=== PATIENT | female | born 1985 | race Hispanic/Latino ===

== ENCOUNTER 2023-02-18 13:17 | Emergency (ER) | payer OTHER ==
[2023-02-18 14:16] LABS: Absolute Lymphocytes (CBC) 1.5 K/uL (0.7-4.9); Hematocrit 37.4 % (36.0-45.0); Lymphocytes % 30.8 % (15.3-44.8); MCV 83.8 fL (80-100); MPV 7.3 fL (7.6-11.3); Platelets 299 thou/uL (152-406); RBC Red Blood Cell Count 4.46 M/uL (3.86-4.86)
[2023-02-18 14:42] LABS: Albumin 3.5 g/dL (3.4-5.0); Bilirubin Direct 0.1 mg/dL (0-0.2); Bilirubin Indirect, Calculated 0.5 mg/dL (0.2-0.8); Bilirubin Total 0.6 mg/dL (0.2-1.0); Magnesium 2.2 mg/dL (1.6-2.4); Potassium 3.8 mEq/L (3.5-5.1); Protein, Total 7.4 g/dL (6.4-8.2); Thyroid Stimulating Hormone 2.22 uIU/mL (0.358-3.740)
--- NOTE | 2023-02-18 14:50 | RAD REPORT ---
EXAM DESCRIPTION: RAD - Abdomen 1 View (KUB) - 02/18/2023 2:42 pm CLINICAL HISTORY: CONSTIPATION Pain COMPARISON: No comparisons FINDINGS: The bowel gas pattern is non-obstructive. No evidence of free air or pneumatosis. No suspi cious calcifications. No significant bony findings. Moderate stool is present in the colon. IMPRESSION: Moderate constipation.
--- NOTE | 2023-02-18 15:03 | ER ---
Nurse's Notes [facility] Name: Linsey Goldman Age: 37 yrs Sex: Female : 1985 Arrival Date: 02/18/2023 Time: 13:17 Bed 19 [facility] MD: Diagnosis: Constipation, unspecified Presentation: 02/18 13:29 Chief complaint: Patient states: Not eating well, not having good BM's, fatigue, SOB ll1 with exertion, some nausea since beginning of February. No fever. Lots of life's stressors recently. Coronavirus screen: Vaccine status: Patient reports receiving the 2nd dose of the covid vaccine. Client denies travel out of the [place] in the last 14 days. At this time, the client does not indicate any symptoms associated with coronavirus-19. Ebola Screen: Patient denies travel to an Ebola-affected area in the 21 days before illness onset. No acute neurological deficit is noted. Initial Sepsis Screen: Does the patient meet any 2 criteria? No. Patient's initial sepsis screen is negative. Does the patient have a suspected source of infection? No. Patient's initial sepsis screen is negative. Risk Assessment: Do you want to hurt yourself or someone else? Patient reports no desire to harm self or others. Onset of symptoms was February 03, 2023. 13:29 Method Of Arrival: Ambulatory ll1 13:29 Acuity: VIDA 3 ll1 PALLIATIVE MEDICINE PHYSICIAN: 15:11 LMP N/A - control method, Not ap3 Stroke Activation: Symptom onset > 6 hours Physician: Stroke Attending; Name: ; Notified At: ; Arrived At: Physician: Chief Stroke Resident; Name: ; Notified At: ; Arrived At: Physician: Stroke Resident; Name: ; Notified At: ; Arrived At: Physician: ED Attending; Name: ; Notified At: ; Arrived At: Physician: ED Resident; Name: ; Notified At: ; Arrived At: Historical: - Allergies: 13:33 No Known Allergies; ll1 - PMHx: 13:33 None; ll1 - PSHx: 13:33 section; ll1 - Immunization history:: Client reports receiving the 2nd dose of the Covid vaccine. - Social history:: Smoking status: Patient denies any tobacco usage or history of. Screenin:34 [facility] ED Fall Risk Assessment (Adult) History of falling in the last 3 months, ap3 including since admission No falls in past 3 months (0 pts). Abuse screen: Denies threats or abuse. Nutritional screening: No deficits noted. Tuberculosis screening: No symptoms or risk factors identified. Assessment: 14:33 General: Appears in no apparent distress. Behavior is cooperative, appropriate for age, ap3 anxious. Pain: Complains of pain in abdomen Quality of pain is described as discomfort. Neuro: Level of Consciousness is awake, alert, obeys commands, Oriented to person, place, time, situation. Cardiovascular: Patient's skin is warm and dry. Respiratory: Airway is patent Respiratory effort is even, unlabored, Respiratory pattern is regular, symmetrical. GI: Reports constipation. Vital Signs: 13:29 BP 133 / 76; Pulse 91; Resp 17; Temp 99.4; Pulse Ox 100% ; Weight 64.86 kg; Height 4 ll1 ft. 11 in. ; Pain 0/10; 13:29 Body Mass Index 28.88 (64.86 kg, 149.86 cm) ll1 13:29 Pain Scale: Adult ll1 ED Course: 13:21 Patient arrived in ED. mr 13:21 Deyanira Brian MD is Attending Physician. sp3 13:32 Triage completed. ll1 14:08 Santa Hernandez, PARRISH is Primary Nurse. ap3 14:08 Initial lab(s) drawn, by me, sent to lab. Inserted saline lock: 20 gauge in right ap3 antecubital area, using aseptic technique. Blood collected. 14:34 Arm band placed on right wrist. ap3 14:34 Patient has correct armband on for positive identification. Bed in low position. Call ap3 light in reach. Side rails up X 1. cash crop farmer on. Pulse ox on. NIBP on. 14:44 Abdomen 1 View (KUB) XRAY In Process Unspecified. EDMS 15:10 No provider procedures requiring assistance completed. IV discontinued, intact, ap3 bleeding controlled, No redness/swelling at site. Pressure dressing applied. 15:11 Provided Education on: discharge instructions. ap3 Administered Medications: No medications were administered Medication: 15:11 VIS not applicable for this client. ap3 Outcome: 15:03 Discharge ordered by . sp3 15:10 Discharged to home ambulatory, ap3 15:10 Condition: good 15:10 Discharge instructions given to patient, Instructed on discharge instructions, follow up and referral plans. Demonstrated understanding of instructions, follow-up care, 15:11 Patient left the ED. ap3 Signatures: Dispatcher [employer] ANTONIO AmaroAshley king, Leonardo Reg mr Santa Hernandez, RN RN ap3 Brant Cano RN RN ll1 Deyanira Brian MD MD sp3
--- NOTE | 2023-02-18 15:04 | EDPHYS ---
Physician Documentation [facility] Name: Linsey Goldman Age: 37 yrs Sex: Female : 1985 Arrival Date: 02/18/2023 Time: 13:17 Bed 19 Private MD: ED Physician Deyanira Brian HPI: 02/18 14:11 This 37 yrs old Female presents to ER via Ambulatory with complaints of sp3 Weakness, Low bp. 14:11 37-year-old female with no past medical history presents to the ED with chief complaint sp3 changes in her bowel movements, generalized weakness and she states that her blood pressure was 70 systolic at home this morning. Her last "normal bowel movement was in early February and she states that her and her have had to use 7 enemas over the last week in order to help". She now states she has occasional diarrhea as well. No prior history of bowel obstruction, ileus or other bowel pathology. She is on no medications. She denies any change in her diet other than decreased hunger therefore less food. She denies fever, URI symptoms, chest pain, shortness of breath, abdominal pain, vomiting, or any other signs or symptoms on ROS at this time.. 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 - Social history:: Smoking status: Patient denies any tobacco usage or history of. ROS: 14:13 Constitutional: Negative for fever, chills, and weight loss, Eyes: Negative for injury, sp3 pain, redness, and discharge, ENT: Negative for injury, pain, and discharge, Neck: Negative for injury, pain, and swelling, Cardiovascular: Negative for chest pain, palpitations, and edema, Respiratory: Negative for shortness of breath, cough, wheezing, and pleuritic chest pain, MS/Extremity: Negative for injury and deformity, Skin: Negative for injury, rash, and discoloration, Neuro: Negative for headache, weakness, numbness, tingling, and seizure, Psych: Negative for depression, anxiety, suicide ideation, homicidal ideation, and hallucinations, Allergy/Immunology: Negative for hives, rash, and allergies, Endocrine: Negative for neck swelling, polydipsia, polyuria, polyphagia, and marked weight changes, 14:13 All other systems are negative, Exam: 14:17 Constitutional: This is a well developed, well nourished patient who is awake, alert, sp3 and in no acute distress. Head/Face: Normocephalic, atraumatic. Eyes: Pupils equal round and reactive to light, extra-ocular motions intact. Lids and lashes normal. Conjunctiva and sclera are non-icteric and not injected. Cornea within normal limits. Periorbital areas with no swelling, redness, or edema. ENT: Nares patent. No nasal discharge, no septal abnormalities noted. External auditory canals are clear. Oropharynx with no redness, swelling, or masses, exudates, or evidence of obstruction, uvula midline. Mucous membranes moist. Neck: Trachea midline, no thyromegaly or masses palpated, and no cervical lymphadenopathy. Supple, full range of motion without nuchal rigidity, or vertebral point tenderness. No Meningismus. Chest/axilla: Normal chest wall appearance and motion. Nontender with no deformity. No lesions are appreciated. Cardiovascular: Regular rate and rhythm with a normal S1 and S2. No gallops, murmurs, or rubs. Normal PMI, no JVD. No pulse deficits. Respiratory: Lungs have equal breath sounds bilaterally, clear to auscultation and percussion. No rales, rhonchi or wheezes noted. No increased work of breathing, no retractions or nasal flaring. Abdomen/GI: Soft, non-tender, with normal bowel sounds. No distension or tympany. No guarding or rebound. No evidence of tenderness throughout. Back: No spinal tenderness. No costovertebral tenderness. Full range of motion. Skin: Warm, dry with normal turgor. Normal color with no rashes, no lesions, and no evidence of cellulitis. MS/ Extremity: Pulses equal, no cyanosis. Neurovascular intact. Full, normal range of motion. Neuro: Awake and alert, GCS 15, oriented to person, place, time, and situation. Cranial nerves II-XII grossly intact. Motor strength 5/5 in all extremities. Sensory grossly intact. Cerebellar exam normal. Normal gait. Psych: Awake, alert, with orientation to person, place and time. Behavior, mood, and affect are within normal limits. 14:22 ECG was reviewed by the Attending Physician. EKG demonstrates normal sinus rhythm at 79 sp3 bpm with normal intervals, normal QRS, normal axis, normal ST/T-segment's without evidence of acute ischemia. Vital Signs: 13:29 BP 133 / 76; Pulse 91; Resp 17; Temp 99.4; Pulse Ox 100% ; Weight 64.86 kg; Height 4 ll1 ft. 11 in. ; Pain 0/10; 13:29 Body Mass Index 28.88 (64.86 kg, 149.86 cm) ll1 13:29 Pain Scale: Adult ll1 MDM: 13:37 Patient medically screened. sp3 14:18 Data reviewed: vital signs, nurses notes, lab test result(s), EKG, radiologic studies. sp3 ED course: 37-year-old female with change in bowel habits and generalized weakness. Multiple enemas were used and so we will assess for any electrolyte changes. Differential diagnosis includes constipation, electrolyte abnormality, and to a much lower degree acute coronary syndrome, other bowel pathology, ileus, obstruction, thyroid changes. Clinically her abdominal exam does not fit obstruction pathway. Work-up will include EKG, laboratory values, KUB x-ray and general observation. I have reassured patient based on clinical exam that there is likely no significant findings. If work-up is negative, we will safely discharge patient home.. 15:01 ED course: Laboratory values are within normal limits. X-ray demonstrates moderate sp3 constipation which is likely the reason for his symptoms. We will safely discharge home at this time with education on bowel habits.. 02/18 13:38 Order name: Basic Metabolic Panel; Complete Time: 15:3 02/18 13:38 Order name: CBC with Diff; Complete Time: 15:3 02/18 13:38 Order name: LFT's; Complete Time: 15: sp3 02/18 13:38 Order name: Magnesium; Complete Time: 15: sp3 02/18 13:38 Order name: Troponin HS; Complete Time: 15:01 sp3 02/18 13:38 Order name: TSH; Complete Time: 15:3 02/18 14:11 Order name: Abdomen 1 View (KUB) XRAY; Complete Time: 15:01 sp3 02/18 13:38 Order name: EKG; Complete Time: 13:39 sp3 02/18 13:38 Order name: Cardiac monitoring; Complete Time: 14:09 sp3 02/18 13:38 Order name: EKG - Nurse/Tech; Complete Time: 14:15 sp3 02/18 13:38 Order name: IV Saline Lock; Complete Time: 14:09 sp3 02/18 13:38 Order name: Labs collected and sent; Complete Time: 14:09 sp3 Administered Medications: No medications were administered Disposition Summary: 02/18/23 15:03 Discharge Ordered Notes: Location: Home sp3 Condition: Stable sp3 Diagnosis - Constipation, unspecified sp3 Followup: sp3 - With: Private Physician - When: Upon discharge from the Emergency Department - Reason: Continuance of care Discharge Instructions: - Discharge Summary Sheet sp3 - Constipation, Adult sp3 Forms: - Medication Reconciliation Form sp3 - Thank You Letter sp3 - Antibiotic Education sp3 - Prescription Opioid Use sp3 - Patient Portal Instructions sp3 - Leadership Thank You Letter sp3 Signatures: Dispatcher [employer] Brant Salvador, PARRISH RN ll1 Deyanira Brian MD MD sp3
[2023-02-18 15:28] VITALS: BP 133/76; TEMP 99.4; O2SAT 100
--- NOTE | 2023-02-18 17:01 | EKG ---
Test Date: 2023-02-18 Test Time: 14:19:27 Associate Research Scientist: ALP MEASUREMENT RESULTS: Intervals: Rate: 79 NH: 128 QRSD: 84 QT: 392 QTc: 449 Beatrice: P: 31 NH: 128 QRS: 90 T: 32 INTERPRETIVE STATEMENTS: Normal sinus rhythm Rightward axis Borderline ECG No previous ECG available for comparison Electronically Signed On 02-18-23 17:00:57 CDT by Augustin Villavicencio
== END 2023-02-18 15:11 | disposition home or self-care (01) ==
LOC: ER 13:17
DX: K59.00 Constipation, unspecified (principal); R53.1 Weakness
CPT/HCPCS: 36415; 74018; 80048; 80076; 83735; 84443; 84484; 85025; 93005; 99284